=== PATIENT | male | born 1980 | race Two or more races ===

== ENCOUNTER 2021-06-17 10:57 | Emergency (ER) | payer SELFPAY ==
[~2021-06-17] VITALS: Ht 157.5 cm; Wt 62.6 kg
[2021-06-17] MEDS ORDERED: IV NORMAL SALINE 1000 ML BAG IV ONE (11:30)
--- NOTE | 2021-06-17 11:31 | NUR ---
DR CHANEY AT BEDSIDE FOR EVALUATION.
[2021-06-17 12:15] LABS: HEMATOCRIT 45.4 % (36.7-47.1); MEAN CORPUSCULAR HEMOGLOBIN 31.1 uug (23.8-33.4); MEAN CORPUSCULAR VOLUME 88.3 fL (73.0-96.2); PLATELET COUNT (AUTO) 292 K/uL (152-348)
[2021-06-17 12:19] LABS: CREATININE 0.8 mg/dL (0.6-1.3); POTASSIUM 3.9 mmol/L (3.5-5.1)
[2021-06-17 12:25] LABS: BILIRUBIN,DIRECT 0.3 mg/dL (0.0-0.2); BILIRUBIN,TOTAL 1.4 mg/dL (0.2-1.0); TOTAL PROTEIN, SERUM 7.7 g/dL (6.4-8.2)
--- NOTE | 2021-06-17 13:32 | NUR ---
Patient states "I feel much better". Denies dizziness, cramping, pain or nausea. He drank 3-4 oz of gatorade and tolerated it well.
--- NOTE | 2021-06-17 13:34 | NUR ---
IV removed. Catheter intact and site benign. Pressure and 4x4 gauze applied to site. No bleeding noted.
[2021-06-17 13:35] VITALS: BP 121/72
== END 2021-06-17 14:53 | disposition home or self-care (01) ==
LOC: ER 11:00
DX: F45.8 Other somatoform disorders (principal); E86.0 Dehydration; R11.10 Vomiting, unspecified; Z82.49 Family history of ischemic heart disease and other diseases of the circulatory system; R94.31 Abnormal electrocardiogram [ECG] [EKG]; R17 Unspecified jaundice; Z20.822 Contact with and (suspected) exposure to COVID-19; D72.829 Elevated white blood cell count, unspecified
CPT/HCPCS: 36415; 83735; 85025; 93005; A4663; J7040